=== PATIENT | female | born 1975 | race Caucasian/White ===

== ENCOUNTER → 2016-05-11 | Outpatient (CLI) | payer OTHER ==
[~2016-05-11] MED LIST: LRT5 PO
[2016-05-11 13:15] LABS: CHOLESTEROL/HDL RATIO 1.8; THYROID STIMULATING HORMONE 2.99 uIu/ml (0.300-4.500)
== END | disposition home or self-care (01) ==
LOC: C.LABBFT 10:31
PROVIDERS: ATTEND Internal Medicine
DX: Z00.00 Encounter for general adult medical examination without abnormal findings (principal); Z13.6 Encounter for screening for cardiovascular disorders

== ENCOUNTER → 2016-06-28 | Outpatient (CLI) | payer OTHER | END | disposition home or self-care (01) | LOC: C.PAPS 16:20 | PROVIDERS: ATTEND Obstetrics & Gynecology | DX: Z01.419 Encounter for gynecological examination (general) (routine) without abnormal findings (principal) ==

== ENCOUNTER 2016-10-08 12:21 | Emergency (ER) | payer OTHER ==
[2016-10-08 12:23] VITALS: TEMP 36.3; Ht 162.6 cm
[2016-10-08] MEDS ORDERED: LORAZEPAM 2 MG/ML 1 ML VIAL IV STA (12:37)
[2016-10-08] MEDS ORDERED: MECLIZINE HCL 25 MG TAB PO STA (12:37)
[2016-10-08] MEDS ORDERED: ONDANSETRON 8 MG/54 ML D5W IV STA (12:37)
[2016-10-08] MEDS ORDERED: SODIUM CHLORIDE 0.9% 1000ML 1,000 ML IV STA (12:37)
[2016-10-08 13:10] LABS: HEMATOCRIT 39.6 % (37-47); MEAN CELL VOLUME 90.4 fL (80-100); MEAN CORPUSCULAR HEMOGLOBIN 32.4 pg (25-34); MEAN CORPUSCULAR HGB CONC 35.9 g/dl (32-36); MEAN PLATELET VOLUME 10.2 fL (7.4-10.4); PLATELET COUNT 272 K/uL (130-400); RED BLOOD COUNT 4.38 M/uL (4.2-5.4); WHITE BLOOD COUNT 4.82 K/uL (4.8-10.8)
--- NOTE | 2016-10-08 13:18 | DIAGNOSTIC IMAGING REPORT ---
CHEST ONE VIEW PORTABLE CLINICAL HISTORY: EVALUATE ALTERED MENTAL STATUS/WEAKNESS dyspnea COMPARISON STUDY: No previous studies for comparison. FINDINGS: The bones soft tissues and hemidiaphragms are normal. The cardiomediastinal silhouette is normal. The lungs are clear. The pulmonary vasculature is normal. IMPRESSION: Negative chest. The above report was generated using voice recognition software. It may contain grammatical, syntax or spelling errors. Electronically signed by: Rian Brannon M.D. 10/08/2016 1:17 PM Dictated Date/Time: 10/08/2016 1:16 PM
[2016-10-08 13:23] LABS: PROTHROMBIN TIME (PATIENT) 10.9 SECONDS (9.0-12.0)
--- NOTE | 2016-10-08 13:26 | DIAGNOSTIC IMAGING REPORT ---
HEAD WITHOUT CONTRAST (CT) CT DOSE: 1203.96 mGy.cm HISTORY: Mental status change EVALUATE ALTERED MENTAL STATUS/WEAKNESS TECHNIQUE: Multiaxial CT images of the head were performed without the use of intravenous contrast. Comparison: None. Findings: The paranasal sinuses and mastoid air cells are clear. The calvarium and skull base are intact. The ventricles and sulci are within normal limits. There is no mass, hematoma, midline shift, or acute infarct. Impression: No acute intracranial abnormality. The above report was generated using voice recognition software. It may contain grammatical, syntax or spelling errors. Electronically signed by: Rian Brannon M.D. 10/08/2016 1:25 PM Dictated Date/Time: 10/08/2016 1:24 PM
[2016-10-08 13:32] LABS: BASO % 0.6 %; BASO ABS # 0.03 K/uL (0-0.2); COMPLETE YES; EOS % 1.5 %; LYMPH ABS # 2.41 K/uL (1.2-3.4); MONO % 7.9 %
[2016-10-08 13:33] LABS: ALT/SGPT 26 U/L (12-78); BLOOD UREA NITROGEN 14 mg/dl (7-18); BUN/CREATININE RATIO 14.3 (10-20); CALCIUM 9.4 mg/dl (8.5-10.1); CARBON DIOXIDE 25 mmol/L (21-32); CHLORIDE 105 mmol/L (98-107); CREATININE 0.98 mg/dl (0.60-1.20); GLUCOSE 98 mg/dl (70-99); MAGNESIUM 1.8 mg/dl (1.8-2.4); POTASSIUM 3.7 mmol/L (3.5-5.1); SODIUM 138 mmol/L (136-145)
[2016-10-08 13:41] LABS: ALKALINE PHOSPHATASE 59 U/L (45-117); AST/SGOT 24 U/L (15-37); CKMB/CK RATIO 1.8 (0-3.0)
--- NOTE | 2016-10-08 14:29 | EMERGENCY ROOM VISIT NOTE ---
History Report prepared by [employer]: Hugo Mckeon Under the Supervision of: Dr. Darell Olmstead D.O. First contact with patient: 12:31 Chief Complaint: ILLNESS History of Present Illness The patient is a 41 year old female who presents to the Emergency Room with complaints of resolved speech slur occurring about an hour ago. The patient had a sudden onset of her symptoms. She was sitting down with her when she had trouble talking. The patient's reports that she tried to talk to him but had speech slur. The patient also started having difficulty breathing, headache, and difficulty moving her hand. She had chest discomfort and tingling in arms. The patient currently denies any difficulty breathing or chest pain. She currently reports nausea but denies vomiting. She also notes room spinning dizziness. She denies any improvement in the dizziness with lying down. She describes her current headache as a pressure in her head. She denies any history of similar symptoms or recent prior illnesses. Her menstrual period ended recently. She is not a current smoker. She rodriguez not have any medical problems. The patient denies any family history of heart disease. Source of History: patient Onset: about an hour ago Position: other (global) Quality: other (speech slur) Timing: resolved Associated Symptoms: + headache, + SOB, + nausea, No vomiting Review of Systems See HPI for pertinent positives & negatives. A total of 10 systems reviewed and were otherwise negative. Past Medical & Surgical Medical Problems: (1) Low back pain Family History Patient reports no known family medical history. Social History Smoking Status: Never Smoker Marital Status: Occupation Status: employed Current/Historical Medications No Active Prescriptions or Reported Meds Allergies Coded Allergies: No Known Allergies (Verified , 10/08/16) Physical Exam Vital Signs Date Time Temp Pulse Resp B/P (MAP) Pulse Ox O2 Delivery O2 Flow Rate FiO2 10/08/16 14:10 42 10/08/16 14:10 54 10/08/16 12:23 36.3 81 16 151/84 97 Room Air Physical Exam VITAL SIGNS: were reviewed as above. GENERAL:Non-toxic in appearance. SKIN: Warm dry and pink. HEAD: Normocephalic and atraumatic. OROPHARYNX: Is clear and moist NECK: Supple without lymphadenopathy or meningismus. LUNGS: clear. HEART: Regular rate and rhythm. ABDOMEN: Soft and nontender. EXTREMITIES: Warm and well perfused. NEUROLOGICALLY: Awake alert and oriented without focal deficit. Cranial nerves 2 -12 are intact. There is no pronator drift. Cerebellar testing is within normal limits. There is no nystagmus. There is no facial droop. Speech is clear. Vision is grossly normal. PSYCHIATRIC: Tearful, appears anxious. Mildly hyperventilating. MUSCULOSKELETAL: Good muscle tone. No evidence of trauma. Medical Decision & Procedures ER Provider Diagnostic Interpretation: X ray results and stated below per my interpretation and radiology interpretation. CHEST ONE VIEW PORTABLE CLINICAL HISTORY: EVALUATE ALTERED MENTAL STATUS/WEAKNESS dyspnea COMPARISON STUDY: No previous studies for comparison. FINDINGS: The bones soft tissues and hemidiaphragms are normal. The cardiomediastinal silhouette is normal. The lungs are clear. The pulmonary vasculature is normal. IMPRESSION: Negative chest. The above report was generated using voice recognition software. It may contain grammatical, syntax or spelling errors. Electronically signed by: Rian Brannon M.D. 10/08/2016 1:17 PM Dictated Date/Time: 10/08/2016 1:[address] results as stated below per my review and radiologist interpretation: HEAD WITHOUT CONTRAST (CT) CT DOSE: 1203.96 mGy.cm HISTORY: Mental status change EVALUATE ALTERED MENTAL STATUS/WEAKNESS TECHNIQUE: Multiaxial CT images of the head were performed without the use of intravenous contrast. Comparison: None. Findings: The paranasal sinuses and mastoid air cells are clear. The calvarium and skull base are intact. The ventricles and sulci are within normal limits. There is no mass, hematoma, midline shift, or acute infarct. Impression: No acute intracranial abnormality. The above report was generated using voice recognition software. It may contain grammatical, syntax or spelling errors. Electronically signed by: Rian Brannon M.D. 10/08/2016 1:25 PM Dictated Date/Time: 10/08/2016 1:24 PM Laboratory Results 10/08/16 12:50 Red Blood Count 4.38, Mean Corpuscular Volume 90.4, Mean Corpuscular Hemoglobin 32.4, Mean Corpuscular Hemoglobin Concent 35.9, Mean Platelet Volume 10.2, Neutrophils (%) (Auto) 40.0, Lymphocytes (%) (Auto) 50.0, Monocytes (%) (Auto) 7.9, Eosinophils (%) (Auto) 1.5, Basophils (%) (Auto) 0.6, Neutrophils # (Auto) 1.93, Lymphocytes # (Auto) 2.41, Monocytes # (Auto) 0.38, Eosinophils # (Auto) 0.07, Basophils # (Auto) 0.03 10/08/16 12:50 Test 10/08/16 12:50 10/08/16 13:55 White Blood Count 4.82 K/uL (4.8-10.8) Red Blood Count 4.38 M/uL (4.2-5.4) Hemoglobin 14.2 g/dL (12.0-16.0) Hematocrit 39.6 % (37-47) Mean Corpuscular Volume 90.4 fL (80-100) Mean Corpuscular Hemoglobin 32.4 pg (25-34) Mean Corpuscular Hemoglobin Concent 35.9 g/dl (32-36) Platelet Count 272 K/uL (130-400) Mean Platelet Volume 10.2 fL (7.4-10.4) Neutrophils (%) (Auto) 40.0 % Lymphocytes (%) (Auto) 50.0 % Monocytes (%) (Auto) 7.9 % Eosinophils (%) (Auto) 1.5 % Basophils (%) (Auto) 0.6 % Neutrophils # (Auto) 1.93 K/uL (1.4-6.5) Lymphocytes # (Auto) 2.41 K/uL (1.2-3.4) Monocytes # (Auto) 0.38 K/uL (0.11-0.59) Eosinophils # (Auto) 0.07 K/uL (0-0.5) Basophils # (Auto) 0.03 K/uL (0-0.2) RDW Standard Deviation 40.1 fL (36.4-46.3) RDW Coefficient of Variation 12.1 % (11.5-14.5) Immature Granulocyte % (Auto) 0.0 % Immature Granulocyte # (Auto) 0.00 K/uL (0.00-0.02) Prothrombin Time 10.9 SECONDS (9.0-12.0) Prothromb Time International Ratio 1.0 (0.9-1.1) Activated Partial Thromboplast Time 26.7 SECONDS (21.0-31.0) Partial Thromboplastin Ratio 1.0 Anion Gap 8.0 mmol/L (3-11) Estimated GFR () 84.2 Estimated GFR (Non- 72.7 BUN/Creatinine Ratio 14.3 (10-20) Calcium Level 9.4 mg/dl (8.5-10.1) Magnesium Level 1.8 mg/dl (1.8-2.4) Total Bilirubin 0.7 mg/dl (0.2-1) Direct Bilirubin 0.2 mg/dl (0-0.2) Aspartate Amino Transf (AST/SGOT) 24 U/L (15-37) Alanine Aminotransferase (ALT/SGPT) 26 U/L (12-78) Alkaline Phosphatase 59 U/L (45-117) Total Creatine Kinase 233 U/L (26-192) Creatine Kinase MB 4.3 ng/ml (0.5-3.6) Creatine Kinase MB Ratio 1.8 (0-3.0) Troponin I 0.024 ng/ml (0-0.045) Total Protein 8.2 gm/dl (6.4-8.2) Albumin 4.2 gm/dl (3.4-5.0) Lipase 120 U/L (73-393) Thyroid Stimulating Hormone (TSH) 4.080 uIu/ml (0.300-4.500) Laboratory results as stated above per my review. Medications Administered Medications (Trade) Dose Ordered Sig/Dominga Route Start Time Stop Time Status Last Admin Dose Admin Sodium Chloride 1,000 ml @ 999 mls/hr Q1H1M STAT IV 10/08/16 12:37 10/08/16 13:37 DC 10/08/16 13:00 999 MLS/HR Meclizine HCl (Antivert Tab) 25 mg NOW STAT PO 10/08/16 12:37 10/08/16 13:00 DC 10/08/16 13:00 25 MG Ondansetron HCl (Zofran 8mg Iv) 8 mg NOW STAT IV 10/08/16 12:37 10/08/16 13:00 DC 10/08/16 13:00 8 MG Lorazepam (Ativan Inj) 1 mg NOW STAT IV 10/08/16 12:37 10/08/16 13:00 DC 10/08/16 13:00 1 MG ECG Indication: other (Speech slur) Rate (beats per minute): 77 Rhythm: normal sinus Findings: no acute ischemic change, no ectopy, other (sinus arrhythmia) ED Course 1231: Previous medical records were reviewed. The patient was evaluated in room A02. A complete history and physical examination was performed. 1237: Ativan Inj 1 mg IV, Ondansetron HCl 8 mg IV, Meclizine HCl 25 mg PO, Sodium Chloride 1000 ml @ 999 mls/hr IV 1431: On reevaluation, the patient is resting comfortably. I discussed the results and findings with the patient. She verbalized agreement of the treatment plan. She was discharged home. Medical Decision Medication Reconciliation: I attest that I have personally reviewed the patient' s current medication list. Patient was found to have a slightly elevated blood pressure due to circumstances. I do not believe that the patient requires hypertension monitoring. Differential includes acute coronary syndrome, myocardial infarction, CVA, TIA, anemia, infection, pneumonia, UTI, pyelonephritis, poor nutrition, dehydration, electrolyte disturbance,hypoglycemia. This is a 41-year-old female who presents to the ED with a chief complaint of feeling like she was going to pass out, headache and nausea. The patient states that her initial symptom was that she seemed like she couldn't talk and that her left arm felt numb. She developed nausea and then became dizzy. She denies feeling ill prior to the onset of symptoms today. Her last menstrual period just finished. She has not had any chest pains but was gasping for air at some point. She denies having prior symptoms similar to this. Upon her arrival here, the patient was hyperventilating, per the nurse. Her vital signs revealed an initial hypertension. This improved during her ED stay. She did have some heart rates in the 40s. She is training for a marathon. The patient' s physical exam did not reveal any other abnormalities. Neurologic exam did not reveal any focal deficits. A twelve-lead EKG revealed normal sinus rhythm at a rate of 77. CT scan of the brain was negative for acute disease as well as a chest x-ray. CBC, PRP, TSH, cardiac enzymes were unremarkable. The patient was treated with IV fluids, IV Zofran and IV Ativan. She was also given by mouth meclizine. On reassessment, the patient is feeling back to normal. The exact cause of the patient's symptoms are unclear. She appears and had resolution. She denies any early family history of cardiac or stroke related diseases in her immediate family. She denies any past medical history. She was told to follow-up with her PCP for recheck. She will return if she develops any additional, recurrence or new symptoms. Impression Primary Impression: Dizziness Additional Impressions: Headache Nausea Scribe Attestation The scribe's documentation has been prepared under my direction and personally reviewed by me in its entirety. I confirm that the note above accurately reflects all work, treatment, procedures, and medical decision making performed by me. Departure Information Dispostion Home / Self-Care Prescriptions No Active Prescriptions or Reported Meds Referrals Nas Oscar M.D. (PCP) Forms HOME CARE DOCUMENTATION FORM, IMPORTANT VISIT INFORMATION, WORK / SCHOOL INSTRUCTIONS Patient Instructions My [facility] Additional Instructions Your test results today were normal and did not show a specific cause for your symptoms. Return to the emergency department for any recurrence or new symptoms. Follow-up with your doctor for recheck this week. Problem Qualifiers
[2016-10-08 14:30] VITALS: BP 116/80; PULSE 57; O2SAT 98
[2016-10-08 14:42] LABS: URINE APPEARANCE CLEAR (CLEAR); URINE BILIRUBIN NEG (NEG); URINE COLOR YELLOW; URINE NITRITE NEG (NEG); URINE SPECIFIC GRAVITY 1.011 (1.000-1.030); UROBILINOGEN NEG (NEG); ZZUR CULT IF INDIC CLEAN CATCH NO
[2016-10-08 14:47] LABS: MANUAL MICROSCOPIC REQUIRED? NO; REVIEW REQ? NO
== END 2016-10-08 14:45 | disposition home or self-care (01) ==
LOC: C.EDB 12:22 → C.EDA 14:45
DX: R42 Dizziness and giddiness (principal); R51 Headache; R11.0 Nausea; I10 Essential (primary) hypertension

== ENCOUNTER → 2016-10-18 | Outpatient (CLI) | payer OTHER ==
[~2016-10-18] MED LIST changes: +GADAVIST IV PRN; -LRT5 PO
--- NOTE | 2016-10-18 14:28 | DIAGNOSTIC IMAGING REPORT ---
BRAIN COMBO CLINICAL HISTORY: I63.9 Stroke-like [id number] COMPARISON STUDY: No previous studies for comparison. TECHNIQUE: Utilizing a 1.5 Kat magnet and dedicated coil, multiplanar, multiecho imaging of the brain was performed pre and postcontrast administration. IV administration of 7.9 mL of Gadavist contrast was uneventful. FINDINGS: Signal characteristics are unremarkable throughout. No significant postcontrast enhancement. Ventricular system is midline. No evidence for an acute ischemic process. Sella and parasellar regions are unremarkable. IMPRESSION: Negative study The above report was generated using voice recognition software. It may contain grammatical, syntax or spelling errors. Electronically signed by: Rian Brannon M.D. 10/18/2016 2:27 PM Dictated Date/Time: 10/18/2016 2:24 PM
--- NOTE | 2016-10-18 14:30 | DIAGNOSTIC IMAGING REPORT ---
MRA HEAD WITHOUT CONTRAST HISTORY: 41 years-old Female I63.9 Stroke-like episode COMPARISON: MRI brain of same day. TECHNIQUE: MRA of the head was obtained utilizing 3-D [id number] sequencing with mid reformats. No intravenous contrast was administered. FINDINGS: The bilateral internal carotid arteries are patent and terminate into normal and patent appearing M1 and A1 branches. Normal MCA trifurcation is seen bilaterally. The anterior communicating artery appears normal. The vertebral arteries are codominant. Normal basilar artery is seen with patent and normal and patent appearing P1 segments. There is no evidence of high-grade stenosis, proximal branch occlusion or aneurysm. IMPRESSION: Normal MRA of the head without evidence of high-grade stenosis, aneurysm or proximal branch occlusion. The above report was generated using voice recognition software. It may contain grammatical, syntax or spelling errors. Electronically signed by: Zackery Garvin M.D. 10/18/2016 2:29 PM Dictated Date/Time: 10/18/2016 2:23 PM
--- NOTE | 2016-10-18 14:36 | DIAGNOSTIC IMAGING REPORT ---
MRA NECK COMBO HISTORY: Mental status change I63.9 Stroke-like [id number] TECHNIQUE: [id number] and gadolinium-enhanced MRA of the neck was performed both before and after the intravenous administration of contrast. All measurements were calculated based on NASCET criteria. COMPARISON STUDY: None. FINDINGS: The aortic arch and proximal great vessels are widely patent. There is no significant stenosis, occlusion, or dissection identified within the bilateral common carotid, internal carotid, or vertebral arteries. IMPRESSION: No significant stenosis, occlusion, or dissection identified within the carotid or vertebral arteries. The above report was generated using voice recognition software. It may contain grammatical, syntax or spelling errors. Electronically signed by: Rian Brannon M.D. 10/18/2016 2:35 PM Dictated Date/Time: 10/18/2016 2:32 PM
== END | disposition home or self-care (01) ==
LOC: C.MRIBC 12:28
PROVIDERS: ATTEND Internal Medicine
DX: I63.9 Cerebral infarction, unspecified (principal)

== ENCOUNTER → 2017-01-13 | Outpatient (CLI) | payer OTHER ==
[2017-01-13 17:42] LABS: LYME DISEASE AB IGM NEG (NEG)
[2017-01-13 17:43] LABS: LYME DISEASE AB IGG NEG (NEG)
== END | disposition home or self-care (01) ==
LOC: C.LABBFT 14:26
PROVIDERS: ATTEND Psychiatry & Neurology Neurology
DX: I63.9 Cerebral infarction, unspecified (principal); M54.2 Cervicalgia

== ENCOUNTER → 2017-07-07 | Outpatient (CLI) | payer OTHER | END | disposition home or self-care (01) | LOC: C.PAPS 15:54 | PROVIDERS: ATTEND Obstetrics & Gynecology | DX: Z12.4 Encounter for screening for malignant neoplasm of cervix (principal) ==